=== PATIENT | female | born 1975 | race Caucasian/White ===

== ENCOUNTER 2024-08-24 13:21 | Emergency (ER) | payer OTHER ==
[~2024-08-24] VITALS: Ht 177.8 cm; Wt 56.7 kg
[2024-08-24] MEDS ORDERED: IOHEXOL-300 100 ML VIAL IV ONE (14:47)
[2024-08-24 15:48] LABS: BASOPHILS % (AUTO) 0.3 % (0.0-2.0); EOSINOPHILS % (AUTO) 0.5 % (0.0-6.0); HEMATOCRIT 43 % (33-45); HEMOGLOBIN 14.4 g/dL (11.5-14.8); LYMPHOCYTES # (AUTO) 1.1 K/uL (0.8-4.8); LYMPHOCYTES % (AUTO) 17.1 % (20.0-44.0); MEAN CORPUSCULAR HEMOGLOBIN 30 PG (26.0-33.0); MEAN CORPUSCULAR HGB CONC 34 g/dl (31.0-36.0); MEAN CORPUSCULAR VOLUME 90 fL (82-100); MONOCYTES # (AUTO) 0.4 K/uL (0.1-1.30); NEUTROPHILS # (AUTO) 4.9 K/uL (1.8-8.9); NEUTROPHILS % (AUTO) 76.1 % (43.0-81.0); PLATELET COUNT (AUTO) 230 K/uL (150-450); RED BLOOD CELL COUNT(AUTO) 4.78 MIL/uL (4.0-5.2); RED CELL DISTRIBUTION WIDTH 12.9 % (11.5-15.0); WHITE BLOOD COUNT (AUTO) 6.5 K/uL (4.3-11.0)
[2024-08-24 15:57] LABS: POTASSIUM 3.6 mmol/L (3.5-5.1)
[2024-08-24 17:31] VITALS: BP 145/81; TEMP 98.4; O2SAT 100
== END 2024-08-24 17:33 | disposition left against medical advice (07) ==
LOC: ER 13:30
DX: G93.9 Disorder of brain, unspecified (principal); S09.90XA Unspecified injury of head, initial encounter; R42 Dizziness and giddiness; Y04.0XXA Assault by unarmed brawl or fight, initial encounter; Y93.89 Activity, other specified; Y92.89 Other specified places as the place of occurrence of the external cause; Y99.8 Other external cause status
CPT/HCPCS: 99291; 70460; 70486; 85025; 80048; 36415; 86850; 70450; Q9967